=== PATIENT | male | born 1945 | race African-American/Black ===

== ENCOUNTER 2021-10-27 19:04 | Inpatient (IN) | payer OTHER ==
[2021-10-27] MEDS ORDERED: ACETAMINOPHEN 500 MG TAB ONE (20:15)
[2021-10-27] MEDS ORDERED: NA CHLORIDE 0.9% 1,000 ML ONE ×2 (20:15→21:45)
[2021-10-27] MEDS ORDERED: CEFTRIAXONE 1000 MG/VIAL ONE (20:18)
[2021-10-27 20:19] LABS: Absolute Lymphocytes (CBC) 0.5 K/uL (0.7-4.9); Hematocrit 32.3 % (39.6-49.0); Lymphocytes % 7.6 % (15.3-44.8); MPV 7.4 fL (7.6-11.3); RBC Red Blood Cell Count 4.51 M/uL (4.33-5.43)
[2021-10-27 20:22] LABS: Protime INR 1.25
--- NOTE | 2021-10-27 20:22 | RAD REPORT ---
EXAM DESCRIPTION: RAD - Chest Single View - 10/27/2021 8:07 pm CLINICAL HISTORY: FEVER, hematuria COMPARISON: None available TECHNIQUE: AP portable chest image was obtained 10/27/2021 8:07 pm . FINDINGS: Lungs are clear. Heart and vasculature are normal. No measurable pleural effusion and no p neumothorax. No acute bony abnormality seen. No acute aortic findings suspected. IMPRESSION: No acute cardiopulmonary process.
[2021-10-27 20:45] LABS: Albumin 3.7 g/dL (3.4-5.0); Bilirubin Direct 0.2 mg/dL (0-0.2); Bilirubin Total 0.5 mg/dL (0.2-1.0); Magnesium 1.1 mg/dL (1.8-2.4); Protein, Total 7.8 g/dL (6.4-8.2); Troponin High Sensitivity 44.3 pg/mL (<58.9)
[2021-10-27 20:54] LABS: SARS-COV-2 RT PCR NEGATIVE (NEGATIVE)
[2021-10-27 20:55] LABS: Urine Blood 3+ (Negative); Urine Glucose Negative (Negative); Urine Protein 2+ (Negative); Urine Specific Gravity 1.025 (1.005-1.030); Urine pH 5.5 (5.0-7.0)
[2021-10-27] MEDS ORDERED: Magnesium Sulfate 2gm IVPB 2 G/50 ML BAG IV ONE (21:06)
[2021-10-27 21:09] LABS: Urine Bacteria >50 /HPF (NONE SEEN); Urine RBC >50 /HPF (NONE SEEN); Urine Urothelial Cells <5 /HPF (NONE SEEN)
--- NOTE | 2021-10-27 21:32 | RAD REPORT ---
EXAM DESCRIPTION: CT - Stone Protocol - 10/27/2021 9:22 pm CLINICAL HISTORY: hematuria COMPARISON: No comparisons TECHNIQUE: Axial 3 mm thick images were obtained without oral or IV contrast. The [id number] span s the entirety of the system including uppermost abdomen and lung bases. All CT scans are performed using dose optimization technique as appropriate and may include automated exposure control or mA/KV adjustment according to patient size. FINDINGS: No hydronephrosis is present and no obstructing ureteral calculi. A 4 mm nonobstructing ca lculus present lateral mid left renal calyx. Trace amount nonspecific perinephric stranding seen. No suspicious renal masses. Isodense masses and pyelonephritis are not excluded on a stone protocol CT s can. No significant adrenal finding. Urinary bladder is tightly contracted. This accentuates wall thi ckness. Possible bladder mass or abnormal bladder wall thickening cannot be assessed in this study. P rostate gland is enlarged. There is stranding in the fat adjacent to the prostate gland. Imaged portions of the liver, spleen and pancreas show no suspicious findings on non-contrast imaging . No gallbladder or biliary tree abnormality identified. No suspicious bowel findings. Appendix is normal. No acute GI process seen. No hernia, mass or bulky lymphadenopathy noted. No free air, free fluid or inflammatory stranding. No significant bony abnormality. IMPRESSION: No hydronephrosis, obstructing calculus or acute renal or ureteral process seen. Prostate gland is not grossly enlarged but does show some stranding or edema in the periprostatic fat . Correlation is needed with any clinical or exam findings of prostatitis. Urinary bladder is tightly contracted which precludes accurate assessment of cystitis, bladder wall t hickening or bladder mass. Isodense masses and pyelonephritis are not excluded on stone protocol technique.
[2021-10-27] MEDS ORDERED: IBUPROFEN 400 MG TAB ONE (21:41)
[2021-10-27] MEDS ORDERED: IBUPROFEN 200 MG TAB PO ONE (21:41)
[2021-10-27 22:00] LABS: Blood Morphology Comment NOT SEEN (NOT SEEN); Platelet Estimate ADEQ; White Blood Cell Scan OK (OK)
--- NOTE | 2021-10-27 22:15 | EDPHYS ---
Physician Documentation [facility] Name: Glenn Galvez Age: 76 yrs Sex: Male : 1945 Arrival Date: 10/27/2021 Time: 19:06 Bed 18 Private MD: ED Physician Qasim Grant HPI: 10/27 19:55 This 76 yrs old Black Male presents to ER via Wheelchair with complaints of Urinary cp Problem. 19:55 The patient presents with urinary symptoms, hematuria. cp 19:55 Onset: The symptoms/episode began/occurred yesterday. Associated signs and symptoms: cp Pertinent positives: fever, hematuria, Pertinent negatives: abdominal pain, constipation, diarrhea, dysuria, nausea, vomiting. Severity of symptoms: in the emergency department the symptoms are unchanged, despite home interventions. Historical: - Allergies: 19:19 No Known Allergies; lg3 - Home Meds: 19:19 losartan 50 mg oral tab 1 tab once daily [Active]; metformin 1,000 mg Oral tr24 1 tab lg3 once daily [Active]; aspirin 81 mg Oral TbEC 1 tab once daily [Active]; simvastatin 40 mg Oral tab 1 tab once daily [Active]; hydrochlorothiazide 25 mg Oral tab 1 tab once daily [Active]; glipizide 5 mg Oral tab 1 tab once daily [Active]; - PMHx: 19:23 Diabetes mellitus; hypertension; high cholesterol; lg3 - PSHx: 19:23 None; lg3 - Immunization history:: Adult Immunizations up to date, Client reports receiving the 2nd dose of the Covid vaccine, moderna X3. - Social history:: Smoking status: Patient denies any tobacco usage or history of. Patient uses alcohol, occasionally. ROS: 19:57 Constitutional: Positive for fever, Negative for body aches, chills, poor PO intake. cp 19:57 Eyes: Negative for injury, pain, redness, and discharge. cp 19:57 ENT: Negative for drainage from ear(s), ear pain, sore throat, difficulty swallowing, difficulty handling secretions. 19:57 Cardiovascular: Negative for chest pain, edema, palpitations. 19:57 Respiratory: Negative for cough, shortness of breath, wheezing. 19:57 Abdomen/GI: Negative for abdominal pain, vomiting, diarrhea, constipation. 19:57 Back: Negative for pain at rest, pain with movement. 19:57 : Positive for hematuria, Negative for burning with urination, difficulty urinating, testicular pain 19:57 Skin: Negative for rash. 19:57 Neuro: Negative for altered mental status, dizziness, headache, weakness. 19:57 All other systems are negative. Exam: 19:57 ECG was reviewed by the Attending Physician. cp 20:00 Constitutional: The patient appears in no acute distress, alert, awake, cp non-diaphoretic, non-toxic, well developed, well nourished, febrile. 20:00 Head/Face: Normocephalic, atraumatic. cp 20:00 Eyes: Periorbital structures: appear normal, Conjunctiva: normal, no exudate, no injection, Sclera: no appreciated abnormality, Lids and lashes: appear normal, bilaterally. 20:00 ENT: External ear(s): are unremarkable, Nose: is normal, Mouth: Lips: moist, Oral mucosa: pink and intact, moist, Posterior pharynx: is normal, airway is patent, no erythema, no exudate. 20:00 Neck: ROM/movement: is normal, is supple, without pain, no range of motions limitations, no meningismus. 20:00 Chest/axilla: Inspection: normal, Palpation: is normal, no crepitus, no tenderness. 20:00 Cardiovascular: Rate: tachycardic, Rhythm: regular, Edema: is not appreciated, JVD: is not appreciated. 20:00 Respiratory: the patient does not display signs of respiratory distress, Respirations: normal, no use of accessory muscles, no retractions, labored breathing, is not present, Breath sounds: are clear throughout, no decreased breath sounds, no stridor, no wheezing. 20:00 Abdomen/GI: Inspection: abdomen appears normal, Bowel sounds: active, all quadrants, Palpation: abdomen is soft and non-tender, in all quadrants, rebound tenderness, is not appreciated, involuntary guarding, is not appreciated. 20:00 Back: pain, is absent, ROM is normal, CVA tenderness, is absent. 20:00 Skin: no rash present. 20:00 Neuro: Orientation: to person, place \\T\\ time. Mentation: is normal, Motor: moves all fours, strength is normal, Sensation: is normal. Vital Signs: 19:16 BP 135 / 70; Pulse 138; Resp 17; Temp 103(O); Pulse Ox 98% on R/A; Weight 77.11 kg (R); lg3 Height 5 ft. 3 in. (160.02 cm) (R); Pain 0/10; 21:25 Temp 103(O); kd3 23:02 Temp 99(O); kd3 10/28 00:19 BP 131 / 70; Pulse 88; Resp 16; Pulse Ox 100% on R/A; kd3 01:47 BP 128 / 71; Pulse 88; Resp 18; Pulse Ox 99% on R/A; kd3 10/27 19:16 Body Mass Index 30.11 (77.11 kg, 160.02 cm) lg3 MDM: 10/27 19:40 Patient medically screened. cp 20:00 Differential diagnosis: UTI, urinary retention, prostatitis, sepsis. cp 22:00 Data reviewed: vital signs, nurses notes, lab test result(s), EKG, radiologic studies, cp CT scan, plain films. 22:00 Counseling: I had a detailed discussion with the patient and/or guardian regarding: the cp historical points, exam findings, and any diagnostic results supporting the discharge/admit diagnosis, lab results, radiology results, the need for further work-up and treatment in the hospital. 22:05 Physician consultation: Cris PAULA was called at 22:05, was contacted at 22:05, regarding admission, to the telemetry unit. patient's condition. 22:05 Response to treatment: the patient's symptoms have markedly improved after treatment. cp 10/27 19:47 Order name: Basic Metabolic Panel; Complete Time: 20:49 cp 10/27 20:49 Interpretation: Normal except: NA 134; GLUC 205; BUN 25; CRE 1.67; GFR 49. cp 10/27 19:47 Order name: CBC with Diff; Complete Time: 22:50 cp 10/27 20:49 Interpretation: Normal except: HGB 10.4; HCT 32.3; MCV 71.7; MCH 23.0; MPV 7.4; KENNA% cp 88.1; LYM% 7.6; LYMA 0.5. 10/27 19:47 Order name: LFT's; Complete Time: 20:49 cp 10/27 21:46 Interpretation: Normal except: GLOB 4.1; A/G 0.9. cp / 19:47 Order name: Magnesium; Complete Time: 20:49 cp 10/27 21:47 Interpretation: MG 1.1; Reviewed. cp 10/27 19:47 Order name: NT PRO-BNP; Complete Time: 20:49 cp 10/27 19:47 Order name: PT-INR; Complete Time: 20:49 cp 10/27 19:47 Order name: Troponin HS; Complete Time: 20:49 cp 10/27 19:47 Order name: Lactate; Complete Time: 20:49 cp 10/27 19:47 Order name: Blood Culture Adult (2) cp 10/27 19:47 Order name: Procalcitonin; Complete Time: 21:36 cp 10/27 19:47 Order name: Urine Microscopic Only; Complete Time: 21:36 cp 10/27 21:48 Interpretation: Normal except: UWBC 10-20; URBC >50; UBACT >50. cp 10/27 19:47 Order name: COVID-19/FLU A+B (Document "Date of Onset" if Symptomatic); Complete Time: cp 20:56 10/27 20:55 Order name: Urine Dipstick-Ancillary; Complete Time: 20:56 EDMS 10/27 20:56 Interpretation: Normal except: UKET Trace; UBLD 3+; UPROT 2+; UESTR 1+. cp / 21:13 Order name: Urine Culture EDOH 10/27 19:47 Order name: XRAY Chest (1 view); Complete Time: 20:49 cp 10/27 19:47 Order name: EKG; Complete Time: 19:48 cp 10/27 19:47 Order name: Cardiac monitoring; Complete Time: 20:07 cp 10/27 19:47 Order name: EKG - Nurse/Tech; Complete Time: 20:07 cp 10/27 19:47 Order name: IV Saline Lock; Complete Time: 19:47 cp 10/27 19:47 Order name: Labs collected and sent; Complete Time: 20:07 cp 10/27 20:50 Order name: CT Stone Protocol; Complete Time: 21:36 cp 10/27 22:00 Order name: CBC Smear Scan; Complete Time: 22:50 EDMS 10/27 23:07 Order name: Lactate; Complete Time: 01:18 cp 10/28 01:38 Order name: Procalcitonin EDMS 10/27 19:47 Order name: O2 Per Protocol; Complete Time: 20:07 cp 10/27 19:47 Order name: O2 Sat Monitoring; Complete Time: 20:07 cp 10/27 19:47 Order name: Urine Dipstick-Ancillary (obtain specimen); Complete Time: 20:55 cp EC:57 Rate is 117 beats/min. Rhythm is regular. MN interval is normal. QRS interval is cp normal. QT interval is normal. T waves are Inverted in lead aVR. Interpreted by me. Reviewed by me. Administered Medications: 20:12 Drug: Tylenol 1000 mg Route: PO; 10/28 01:48 Follow up: Response: No adverse reaction [facility] 10/27 20:12 Drug: NS 0.9% 1000 ml Route: IV; Rate: 500 ml/hr; Site: right antecubital; 21:25 Follow up: Response: No adverse reaction; IV Status: Completed infusion 3 10/28 01:48 Follow up: Response: No adverse reaction; IV Status: Completed infusion 3 10/27 20:23 Drug: Rocephin - (cefTRIAXone) 1 grams Route: IVPB; Infused Over: 30 mins; Site: left [facility] antecubital; 10/28 01:48 Follow up: Response: No adverse reaction; IV Status: Completed infusion 3 10/27 21:25 Drug: Magnesium Sulfate 2 grams Route: IVPB; Infused Over: 2 hrs; Site: left [facility] antecubital; 10/28 01:48 Follow up: Response: No adverse reaction; IV Status: Completed infusion 3 10/27 21:40 Drug: Ibuprofen 800 mg Route: PO; 10/28 01:48 Follow up: Response: No adverse reaction 10/27 21:40 Drug: NS 0.9% (30 ml/kg) 30 ml/kg Route: IV; Rate: bolus; Site: right antecubital; 10/28 01:47 Follow up: Rate change 1000 ml; IV Status: Completed infusion Disposition: 06:15 Co-signature as Attending Physician, Qasim Grant MD I agree with the assessment and kdr plan of care. Disposition Summary: 10/27/21 22:15 Hospitalization Ordered Hospitalization Status: Inpatient Admission cp Provider: Brown, Cris cp Location: Telemetry/MedSurg (Inpatient) cp Condition: Stable cp Problem: new cp Symptoms: have improved cp Bed/Room Type: Standard cp Room Assignment: 216(10/27/21 23:19) Diagnosis - UTI/ Urinary tract infection, site not specified cp Forms: - Medication Reconciliation Form cp - SBAR form cp Signatures: Dispatcher [employer] EDMS Mariaa Carlos RN RN Qasim Grant MD MD kdr Page, Corey, PA PA cp Debra Mandel RN RN lg3 Johanna Lawton RN RN kd3 Cris Nayak PA PA sb3 Corrections: (The following items were deleted from the chart) 10/27 22:15 22:15 Sepsis, unspecified organism cp cp 23:19 22:15 cp mw
--- NOTE | 2021-10-27 22:15 | ER ---
Nurse's Notes [facility] Name: Glenn Galvez Age: 76 yrs Sex: Male : 1945 Arrival Date: 10/27/2021 Time: 19:06 Bed 18 Private MD: Diagnosis: UTI/ Urinary tract infection, site not specified Presentation: 10/27 19:16 Chief complaint: Patient states: I started urinating blood yesterday. it stopped lg3 overnight but started again today. denies pain/urgency and frequency. Coronavirus screen: Client denies travel out of the [place] in the last 14 days. At this time, the client does not indicate any symptoms associated with coronavirus-19. Ebola Screen: No symptoms or risks identified at this time. Initial Sepsis Screen: Does the patient meet any 2 criteria? Temp <36.0*C (96.8*F)) or > 38.3*C (100.9*F). HR > 90 bpm. Yes Does the patient have a suspected source of infection? No. Patient's initial sepsis screen is negative. Risk Assessment: Do you want to hurt yourself or someone else? Patient reports no desire to harm self or others. Onset of symptoms was October 26, 2021. 19:16 Method Of Arrival: Wheelchair lg3 19:16 Acuity: MARIA G 3 lg3 Triage Assessment: 19:23 General: Appears in no apparent distress. comfortable, Behavior is calm, cooperative. lg3 Pain: Denies pain. EENT: No deficits noted. No signs and/or symptoms were reported regarding the EENT system. Neuro: No deficits noted. Level of Consciousness is awake, alert, obeys commands, Oriented to person, place, time, situation. Cardiovascular: No deficits noted. Denies chest pain, shortness of breath, Capillary refill < 3 seconds Clubbing of nail beds is absent Patient's skin is warm and dry. Respiratory: No deficits noted. Airway is patent Trachea midline Respiratory effort is even, unlabored, Respiratory pattern is regular, symmetrical. GI: No deficits noted. No signs and/or symptoms were reported involving the gastrointestinal system. : Parent/caregiver report the patient having bloody urine. Derm: No deficits noted. No signs and/or symptoms reported regarding the dermatologic system. Skin is intact, is healthy with good turgor, Skin is diaphoretic. Musculoskeletal: No deficits noted. No signs and/or symptoms reported regarding the musculoskeletal system. Circulation, motion, and sensation intact. Range of motion: intact in all extremities. Historical: - Allergies: 19:19 No Known Allergies; lg3 - Home Meds: 19:19 losartan 50 mg oral tab 1 tab once daily [Active]; metformin 1,000 mg Oral tr24 1 tab lg3 once daily [Active]; aspirin 81 mg Oral TbEC 1 tab once daily [Active]; simvastatin 40 mg Oral tab 1 tab once daily [Active]; hydrochlorothiazide 25 mg Oral tab 1 tab once daily [Active]; glipizide 5 mg Oral tab 1 tab once daily [Active]; - PMHx: 19:23 Diabetes mellitus; hypertension; high cholesterol; lg3 - PSHx: 19:23 None; lg3 - Immunization history:: Adult Immunizations up to date, Client reports receiving the 2nd dose of the Covid vaccine, moderna X3. - Social history:: Smoking status: Patient denies any tobacco usage or history of. Patient uses alcohol, occasionally. Screenin:30 Abuse screen: Denies threats or abuse. Denies injuries from another. Nutritional kd3 screening: No deficits noted. Tuberculosis screening: No symptoms or risk factors identified. Fall Risk IV access (20 points). Assessment: 21:29 General: Appears in no apparent distress. Behavior is calm, cooperative, appropriate kd3 for age. Pain: Denies pain. Neuro: Level of Consciousness is awake, alert, obeys commands, Oriented to person, place, time, situation. Cardiovascular: Patient's skin is warm and dry. Respiratory: Airway is patent Respiratory effort is even, unlabored. GI: No signs and/or symptoms were reported involving the gastrointestinal system. : Urine is blood tinged. Vital Signs: 19:16 BP 135 / 70; Pulse 138; Resp 17; Temp 103(O); Pulse Ox 98% on R/A; Weight 77.11 kg (R); lg3 Height 5 ft. 3 in. (160.02 cm) (R); Pain 0/10; 21:25 Temp 103(O); kd3 23:02 Temp 99(O); kd3 0425 00:19 BP 131 / 70; Pulse 88; Resp 16; Pulse Ox 100% on R/A; kd3 01:47 BP 128 / 71; Pulse 88; Resp 18; Pulse Ox 99% on R/A; kd3 10/27 19:16 Body Mass Index 30.11 (77.11 kg, 160.02 cm) lg3 ED Course: 10/27 19:06 Patient arrived in ED. mr 19:19 Triage completed. lg3 19:23 Arm band placed on left wrist. lg3 19:28 Jareth Clement PA is PHCP. cp 19:36 Jareth Clement PA is PHCP. cp 19:36 Qasim Grant MD is Attending Physician. cp 19:46 Maddison Albarado, SWAPNIL is Primary Nurse. ld1 19:47 Johanna Lawton, SWAPNIL is Primary Nurse. kd3 20:06 COVID-19/FLU A+B (Document "Date of Onset" if Symptomatic) Sent. kd3 20:09 XRAY Chest (1 view) In Process Unspecified. EDMS 21:24 CT Stone Protocol In Process Unspecified. EDMS 21:30 Patient has correct armband on for positive identification. Bed in low position. Call kd3 light in reach. Side rails up X2. 21:30 Inserted saline lock: 20 gauge in right antecubital area, using aseptic technique. kd3 21:31 Inserted saline lock: 20 gauge in left antecubital area, using aseptic technique. kd3 22:14 Cris Nayak PA is Hospitalizing Provider. cp 10/28 01:46 No provider procedures requiring assistance completed. Patient admitted, IV remains in kd3 place. Administered Medications: 10/27 20:12 Drug: Tylenol 1000 mg Route: PO; kd3 10/28 01:48 Follow up: Response: No adverse reaction kd3 10/27 20:12 Drug: NS 0.9% 1000 ml Route: IV; Rate: 500 ml/hr; Site: right antecubital; kd3 21:25 Follow up: Response: No adverse reaction; IV Status: Completed infusion 3 10/28 01:48 Follow up: Response: No adverse reaction; IV Status: Completed infusion kd3 10/27 20:23 Drug: Rocephin - (cefTRIAXone) 1 grams Route: IVPB; Infused Over: 30 mins; Site: left 3 antecubital; 10/28 01:48 Follow up: Response: No adverse reaction; IV Status: Completed infusion kd3 10/27 21:25 Drug: Magnesium Sulfate 2 grams Route: IVPB; Infused Over: 2 hrs; Site: left 3 antecubital; 10/28 01:48 Follow up: Response: No adverse reaction; IV Status: Completed infusion kd3 10/27 21:40 Drug: Ibuprofen 800 mg Route: PO; kd3 10/28 01:48 Follow up: Response: No adverse reaction kd3 10/27 21:40 Drug: NS 0.9% (30 ml/kg) 30 ml/kg Route: IV; Rate: bolus; Site: right antecubital; kd3 10/28 01:47 Follow up: Rate change 1000 ml; IV Status: Completed infusion kd3 Outcome: 10/27 22:15 Decision to Hospitalize by Provider. ashley 10/28 01:46 Admitted to Med/surg accompanied by nurse, room 216, Report called to [place] kd3 Condition: stable Discharge instructions given to patient, family, Instructed on the need for admit, Demonstrated understanding of instructions. 01:49 Patient left the ED. kd3 Signatures: Dispatcher [employer] EDNC Bridget Cordon Corey, PA PA cp Gibson, Lacie RN RN lg3 Maddison Albarado RN RN ld1 Johanna Lawton RN RN kd3
[2021-10-28] MEDS ORDERED: ACETAMINOPHEN 500 MG TAB PO PRN (00:28)
[2021-10-28] MEDS ORDERED: ONDANSETRON 4 MG/2 ML VIAL IV PRN (00:28)
--- NOTE | 2021-10-28 01:18 | P.HP ---
Certification for Inpatient Patient admitted to: Inpatient With expected LOS: <2 Midnights Patient will require the following post-hospital care: None Practitioner: I am a practitioner with admitting privileges, knowledge of patient current condition, hospital course, and medical plan of care. Services: Services provided to patient in accordance with Admission requirements found in Title 42 Section 412.3 of the Code of Federal Regulations Patient History Date of Service: 10/28/21 Reason for admission: Prostatitis/UTI History of Present Illness: Patient is a 76-year-old -Polish male with past medical history of type 2 diabetes mellitus lbk-hqzqjge-osxiwbcms, hypertension, hyperlipidemia who presented to the ED with complaints of hematuria and fever. He was found to have a temperature of 103F and was tachycardic at 138 flagging sepsis. His urine was positive for UTI, Pro-Jeremy elevated at 2.15, magnesium 1.1, creatinine 1.67. Abdominal CT showed no evidence of nephrolithiasis or hydronephrosis. Prostate gland exhibiting stranding or edema in the periprostatic fat along with cystitis. He was given sepsis fluids, ibuprofen, magnesium, and Rocephin. Upon my assessment, patient has no complaints. He is resting comfortably. His temperature has come down to 99 F. Will admit patient for further evaluation and treatment. Allergies No Known Allergies Allergy (Unverified 10/28/21 00:20) Home medications list reviewed: Yes - Past Medical/Surgical History Diabetic: Yes -: Type 2 Zgmdreew-zox-mgqinyd-dependent -: HTN -: HLD Past Surgical History: Patient denies surgical history Psychosocial/ Personal History: Patient lives at home with his . - Family History Mother -: Cancer Father -: Cancer - Social History Smoking Status: Never smoker Alcohol use: Yes CD- Drugs: No Caffeine use: Yes Place of Residence: Home Review of Systems 10-point ROS is otherwise unremarkable General: Fever Genitourinary: Hematuria Physical Examination - Physical Exam General: Alert, In no apparent distress, Oriented x3 HEENT: Atraumatic, PERRLA, Mucous membr. moist/pink, EOMI, Sclerae nonicteric Neck: Supple, 2+ carotid pulse no bruit, No LAD, Without JVD or thyroid abnormality Respiratory: Clear to auscultation bilaterally, Normal air movement Cardiovascular: Regular rate/rhythm, Normal S1 S2 Gastrointestinal: Normal bowel sounds, No tenderness Musculoskeletal: No tenderness Integumentary: No rashes Neurological: Normal speech, Normal strength at 5/5 x4 extr, Normal tone, Normal affect - Studies Laboratory Data (last 24 hrs) 10/27/21 19:35: PT 13.8 H, INR 1.25 10/27/21 19:35: WBC 6.7, Hgb 10.4 L, Hct 32.3 L, Plt Count 194 10/27/21 19:35: Sodium 134 L, Potassium 4.0, BUN 25 H, Creatinine 1.67 H, Glucose 205 H, Magnesium 1.1 L*, Total Bilirubin 0.5, AST 17, ALT 30, Alkaline Phosphatase 71 Assessment and Plan - Problems (Diagnosis) (1) Sepsis Current Visit: Yes Status: Acute Qualifiers: Sepsis type: sepsis due to unspecified organism Sepsis acute organ dysfunction status: without acute organ dysfunction Qualified Code(s): A41.9 - Sepsis, unspecified organism (2) Acute bacterial prostatitis Current Visit: Yes Status: Acute (3) Urinary tract infection with hematuria Current Visit: Yes Status: Acute Qualifiers: Urinary tract infection type: acute cystitis Qualified Code(s): N30.01 - Acute cystitis with hematuria (4) Hypomagnesemia Current Visit: Yes Status: Acute (5) Type 2 diabetes mellitus Current Visit: Yes Status: Chronic Qualifiers: Diabetes mellitus penitentiary insulin use: without long distance billing operator use Diabetes mellitus complication status: without complication Qualified Code(s): E11.9 - Type 2 diabetes mellitus without complications (6) HTN (hypertension) Current Visit: Yes Status: Chronic Qualifiers: Hypertension type: primary hypertension Qualified Code(s): I10 - Essential (primary) hypertension (7) HLD (hyperlipidemia) Current Visit: No Status: Chronic Qualifiers: Hyperlipidemia type: mixed hyperlipidemia Qualified Code(s): E78.2 - Mixed hyperlipidemia (8) Family hx of prostate cancer Current Visit: Yes Status: Chronic (9) REYNA (acute kidney injury) Current Visit: Yes Status: Acute - Plan -Initially flagged sepsis with temp of 103F degrees and HR 138. Temp has come down to 99F heart rate < 100 however Pro-Jeremy elevated at 2.15 (will trend). WBC WNL. patient received sepsis fluids and Rocephin in ED. Blood and urine culture sent. -Urine was positive for UTI and CT showed prostatitis and cystitis. start patient on ciprofloxacin. -Magnesium was very low at 1.1. Received 2 g in the ED. continue patient on magnesium replacement protocol. -Patient states that he has a family history of prostate cancer. He states that his PSA was 0 upon last check. Have ordered PSA for the morning -REYNA with creatinine elevated at 1.67 likely secondary to infection/sepsis. Will trend -Tylenol as needed fever/pain -Reconcile and continue home medications -Lovenox for DVT prophylaxis Patient's , Dee Dee, can be reached at [phone] Discharge Plan: Home Plan to discharge in: 48 Hours - Advance Directives Does patient have a Living Will: No Does patient have a Durable POA for Healthcare: No - Code Status/Comfort Care Code Status Assessed: Yes (Full) Critical Care: No Time Spent Managing Pts Care (In Minutes): 50
[2021-10-28 02:14] VITALS: BMI 29.2
[2021-10-28] MEDS: NA CHLORIDE 0.9% 1,000 ML IV SCH ×3 (02:37→20:57)
[2021-10-28 04:29] LABS: Absolute Lymphocytes (CBC) 0.9 K/uL (0.7-4.9); Hematocrit 28.3 % (39.6-49.0); Lymphocytes % 10.2 % (15.3-44.8); MPV 7.7 fL (7.6-11.3); RBC Red Blood Cell Count 3.93 M/uL (4.33-5.43)
[2021-10-28 04:58] LABS: Magnesium 2.1 mg/dL (1.8-2.4); Phosphorus 3.7 mg/dL (2.5-4.9)
[2021-10-28] MEDS: INSULIN -REGULAR HUMAN 50 UNIT/0.5 ML ML SQ SCH ×4 (07:30→20:43)
[2021-10-28] MEDS: ENOXAPARIN 40 MG/0.4 ML SQ SCH (09:00)
[2021-10-28] MEDS: CIPROFLOXACIN 400mg IV 400 MG/200 ML BAG IV SCH ×2 (10:02→20:53)
--- NOTE | 2021-10-28 15:58 | P.PN ---
Subjective Date of Service: 10/28/21 Chief Complaint: Prostatitis/UTI Subjective: No new changes, Tolerating diet Physical Examination - Vital Signs Temperature: 97.8 F Blood Pressure: 124/68 Pulse: 68 Respirations: 18 Pulse Ox (%): 98 - Studies Laboratory Data (last 24 hrs) 10/27/21 19:35: PT 13.8 H, INR 1.25 10/27/21 19:35: WBC 6.7, Hgb 10.4 L, Hct 32.3 L, Plt Count 194 10/27/21 19:35: Sodium 134 L, Potassium 4.0, BUN 25 H, Creatinine 1.67 H, Glucose 205 H, Magnesium 1.1 L*, Total Bilirubin 0.5, AST 17, ALT 30, Alkaline Phosphatase 71 Microbiology Data (last 24 hrs): 10/27/21 20:00 Blood - Blood Blood Culture Gram Stain - Final Assessment And Plan Physician Review: Patient Assessed, Agree with Above Assessment and Plan Physician Review Additional Text: - Physical Exam General: Alert, In no apparent distress, Oriented x3 HEENT: Atraumatic, PERRLA, Mucous membr. moist/pink, EOMI, Sclerae nonicteric Neck: Supple, 2+ carotid pulse no bruit, No LAD, Without JVD or thyroid abnormality Respiratory: Clear to auscultation bilaterally, Normal air movement Cardiovascular: Regular rate/rhythm, Normal S1 S2 Gastrointestinal: Normal bowel sounds, No tenderness Musculoskeletal: No tenderness Integumentary: No rashes Neurological: Normal speech, Normal strength at 5/5 x4 extr, Normal tone, Normal affect - Studies Assessment and Plan Acute bacterial sepsis Gram-negative martina UTI/cystitis/prostatitis BPH History of diabetes mellitus History of hypertension - Problems (Diagnosis) (1) Sepsis Current Visit: Yes Status: Acute Qualifiers: Sepsis type: sepsis due to unspecified organism Sepsis acute organ dysfunction status: without acute organ dysfunction Qualified Code(s): A41.9 - Sepsis, unspecified organism (2) Acute bacterial prostatitis Current Visit: Yes Status: Acute (3) Urinary tract infection with hematuria Current Visit: Yes Status: Acute Qualifiers: Urinary tract infection type: acute cystitis Qualified Code(s): N30.01 - Acute cystitis with hematuria (4) Hypomagnesemia Current Visit: Yes Status: Acute (5) Type 2 diabetes mellitus Current Visit: Yes Status: Chronic Qualifiers: Diabetes mellitus long-term insulin use: without termite exterminator helper use Diabetes mellitus complication status: without complication Qualified Code(s): E11.9 - Type 2 diabetes mellitus without complications (6) HTN (hypertension) Current Visit: Yes Status: Chronic Qualifiers: Hypertension type: primary hypertension Qualified Code(s): I10 - Essential (primary) hypertension (7) HLD (hyperlipidemia) Current Visit: No Status: Chronic Qualifiers: Hyperlipidemia type: mixed hyperlipidemia Qualified Code(s): E78.2 - Mixed hyperlipidemia (8) Family hx of prostate cancer Current Visit: Yes Status: Chronic (9) REYNA (acute kidney injury) Current Visit: Yes Status: Acute - Plan -Continue empirical antibiotics for cystitis and prostatitis Enlarged prostate noted on imaging, will need follow-up as outpatient for possible prostatectomy Continue antibiotics for now Of urine culture growing gram-negative rods, follow full culture Elevated PSA not reliable in setting of acute prostatitis at this time Continue empirical Rocephin Follow repeat magnesium level Creatinine improving to 1.4 -Reconcile and continue home medications -Lovenox for DVT prophylaxis 10/28/21 15:59
[2021-10-28] MEDS ORDERED: METFORMIN ER 500 MG TAB PO SCH (17:00)
[2021-10-28] MEDS: ATORVASTATIN 20 MG TAB PO SCH (20:57)
[2021-10-28] MEDS ORDERED: HOME MED 1 EA UNK (Simvastatin [Simvastatin] 40 MG Tablet) PO SCH (21:00)
[2021-10-29 05:40] LABS: Absolute Lymphocytes (CBC) 1.1 K/uL (0.7-4.9); Hematocrit 25.5 % (39.6-49.0); MPV 7.7 fL (7.6-11.3); RBC Red Blood Cell Count 3.53 M/uL (4.33-5.43)
[2021-10-29 05:52] LABS: Magnesium 1.8 mg/dL (1.8-2.4)
[2021-10-29] MEDS: NA CHLORIDE 0.9% 1,000 ML IV SCH (06:18)
[2021-10-29] MEDS: INSULIN -REGULAR HUMAN 50 UNIT/0.5 ML ML SQ SCH ×4 (07:30→21:00)
[2021-10-29] MEDS ORDERED: MAGNESIUM SULFATE 1 gm IVPB 1 GM/100 ML BAG IV ONE (09:00)
[2021-10-29] MEDS ORDERED: HOME MED 1 EA UNK (Metformin Hcl [Metformin Er Gastric] 1,000 MG Tabergr24h) PO SCH (09:00)
[2021-10-29] MEDS: ENOXAPARIN 40 MG/0.4 ML SQ SCH (09:00)
--- NOTE | 2021-10-29 09:58 | P.PN ---
Subjective Date of Service: 10/29/21 Chief Complaint: Prostatitis/UTI Subjective: No new changes, Tolerating diet Physical Examination - Vital Signs Temperature: 98.7 F Blood Pressure: 156/72 Pulse: 79 Respirations: 18 Pulse Ox (%): 100 - Studies Microbiology Data (last 24 hrs): 10/27/21 20:00 Blood - Blood Blood Culture Gram Stain - Final Assessment And Plan Physician Review: Patient Assessed, Agree with Above Assessment and Plan Physician Review Additional Text: - Physical Exam General: Alert, In no apparent distress, Oriented x3 HEENT: Atraumatic, PERRLA, Mucous membr. moist/pink, EOMI, Sclerae nonicteric Neck: Supple, 2+ carotid pulse no bruit, No LAD, Without JVD or thyroid abnormality Respiratory: Clear to auscultation bilaterally, Normal air movement Cardiovascular: Regular rate/rhythm, Normal S1 S2 Gastrointestinal: Normal bowel sounds, No tenderness Musculoskeletal: No tenderness Integumentary: No rashes Neurological: Normal speech, Normal strength at 5/5 x4 extr, Normal tone, Normal affect - Studies Assessment and Plan Acute bacterial sepsis Gram-negative martina UTI/cystitis/prostatitis BPH History of diabetes mellitus History of hypertension - Problems (Diagnosis) (1) Sepsis Current Visit: Yes Status: Acute Qualifiers: Sepsis type: sepsis due to unspecified organism Sepsis acute organ dysfunction status: without acute organ dysfunction Qualified Code(s): A41.9 - Sepsis, unspecified organism (2) Acute bacterial prostatitis Current Visit: Yes Status: Acute (3) Urinary tract infection with hematuria Current Visit: Yes Status: Acute Qualifiers: Urinary tract infection type: acute cystitis Qualified Code(s): N30.01 - Acute cystitis with hematuria (4) Hypomagnesemia Current Visit: Yes Status: Acute (5) Type 2 diabetes mellitus Current Visit: Yes Status: Chronic Qualifiers: Diabetes mellitus terminal manager insulin use: without nursing home use Diabetes mellitus complication status: without complication Qualified Code(s): E11.9 - Type 2 diabetes mellitus without complications (6) HTN (hypertension) Current Visit: Yes Status: Chronic Qualifiers: Hypertension type: primary hypertension Qualified Code(s): I10 - Essential (primary) hypertension (7) HLD (hyperlipidemia) Current Visit: No Status: Chronic Qualifiers: Hyperlipidemia type: mixed hyperlipidemia Qualified Code(s): E78.2 - Mixed hyperlipidemia (8) Family hx of prostate cancer Current Visit: Yes Status: Chronic (9) REYNA (acute kidney injury) Current Visit: Yes Status: Acute - Plan -Blood culture Follow repeat blood culture today Urine culture also growing gram-negative rods, follow for sensitivity Continue empirical Cipro Continue empirical antibiotics for cystitis and prostatitis Can DC IVF now since rising BP Creatinine improving to 1.1, follow and appreciate nephrology evaluation Trending H&H due to fluid, obtain iron profile Disposition possible home in a.m. after full culture growth 10/29/21 09:57
[2021-10-29] MEDS: CIPROFLOXACIN 400mg IV 400 MG/200 ML BAG IV SCH ×2 (10:01→21:24)
[2021-10-29] MEDS: ASPIRIN EC 81 MG TAB PO SCH (10:02)
[2021-10-29] MEDS: glipiZIDE 5 MG TAB PO SCH (10:02)
[2021-10-29 11:03] LABS: Ferritin 102.6 ng/mL (26-388)
[2021-10-29] MEDS: METFORMIN ER 500 MG TAB PO SCH (13:15)
[2021-10-29 18:58] LABS: Urine Appearance Clear (Clear); Urine Bilirubin Negative (Negative); Urine Blood Negative (Negative); Urine Color Yellow (Yellow); Urine Glucose Negative (Negative); Urine Protein Negative (Negative); Urine Specific Gravity >=1.030 (1.005-1.030); Urine Urobilinogen 0.2 mg/dL (0.2-1.0); Urine pH 5.5 (5.0-7.0)
[2021-10-29 19:03] LABS: Urine Microscopic Reflex NO UMIC
--- NOTE | 2021-10-29 19:54 | CON ---
Date of Consultation: 10/29/2021 Additional Consulting Physician: Dr. Mcgrath. Reason For Consultation: Elevated BUN and creatinine, hematuria. History Of Present Illness: This is a pleasant 76-year-old gentleman with significant past medical history of diabetes complicated with neuropathy, no retinopathy, hypertension, hyperlipidemia, the patient came to the hospital with hematuria, found to have elevation in BUN and creatinine. For that reason, we have been consulted. The patient denied taking any nonsteroidal, no IV contrast. Reviewing the record for the patient apparently as outpatient, the patient had been on hydrochlorothiazide and losartan. During the hospitalization, the patient was started on IV hydration. Hematuria gradually started improving. Kidney function gradually trending down. Past Medical History: 1. Diabetes complicated with neuropathy, no retinopathy. 2. Hypertension. 3. Hyperlipidemia. Past Surgical History: Negative. Allergies: NO KNOWN DRUGS ALLERGY. Home Medications: Include metformin, glipizide, hydrochlorothiazide, simvastatin, aspirin, and losartan. Current Medications: Include aspirin, atorvastatin, ciprofloxacin, glipizide, metformin. Family History: Positive for hypertension. Social History: Lives with family. Denied smoking. Denied drinking. Denied drug abuse. Review of Systems: Head and Neck: No red eye. No ear pain. GI: Has abdominal pain. : Has hematuria. Construction Trench Digger: Not applicable. Respiratory: No shortness of breath. Cardiovascular: No chest pain. Endocrine: No polydipsia. Skin: No rash. Neuro: Has no neuropathy. No weakness. Musculoskeletal: Has low back pain. Physical Examination: Vital Signs: When I saw the patient, blood pressure 124/71, pulse of 82, afebrile. Chest: Clear to auscultation. Heart: S1, S2. Regular. Abdomen: Soft, nontender. Extremities: No edema. Neurological: Alert and oriented x3. No focal. Laboratory Data: Upon admission to the hospital, H and H of 10.4/32.3. Currently, H and H of 8.1/25.5, WBC 5.7, platelet 165. Upon arrival to the hospital, sodium 134, potassium 4, bicarb 28, BUN 25, creatinine 1.6. GFR of 49, glucose 505, magnesium 1.1, albumin of 3.7, calcium 9.1. CT abdomen did not show any hydronephrosis, no calculi, and a large prostate. Urinalysis, rbc more than 50, wbc of 100. Assessment And Plan: 1. Acute kidney injury secondary to prerenal, superimposed with ARB and hydrochlorothiazide, recovered, resolved. I am going to go ahead and discontinue IV fluid. We will monitor the patient. Keep holding ARB and hydrochlorothiazide for the time being, and we will monitor the patient. 2. Hypomagnesemia status post supplement, resolved. 3. Hyponatremia, depletional, resolved. 4. Prostatitis causing hematuria. Continue current antibiotic, dose appropriate. Okay to switch the patient to oral. 5. Anemia with the presence of acute kidney injury. I am going to go ahead and send for anemia workup and serum protein electrophoresis. Iron deficiency anemia. The patient is going to need to be on supplement the patient. Time spent examining the patient, [id number] communicating with the patient and family, discussing the case with the nursing staff, reviewing the data including lab and radiology,discussing with other speciality placing order 65 minutes LIU Voice ID: [id number] Report ID: [id number] MTDD
[2021-10-29] MEDS: ATORVASTATIN 20 MG TAB PO SCH (21:23)
[2021-10-29] MEDS: FERROUS SULFATE 325 MG TAB PO SCH (21:23)
[2021-10-29 21:41] LABS: UR PROTEIN 32.1 mg/dL (<11.9); Urine Protein/Creatinine Ratio 0.2 ratio (<0.15)
[2021-10-30 05:56] LABS: BUN Blood Urea Nitrogen 15 mg/dL (7-18); Bicarbonate 26 mmol/L (21-32); Glucose Level 157 mg/dL (74-106); Magnesium 1.8 mg/dL (1.8-2.4); Potassium 4.4 mmol/L (3.5-5.1); Sodium Level 139 mmol/L (136-145)
[2021-10-30] MEDS: INSULIN -REGULAR HUMAN 50 UNIT/0.5 ML ML SQ SCH ×2 (07:30→11:30)
[2021-10-30] MEDS: CIPROFLOXACIN 400mg IV 400 MG/200 ML BAG IV SCH (09:00)
[2021-10-30] MEDS ORDERED: AMLODIPINE 10 MG TAB PO ONE (09:00)
[2021-10-30] MEDS ORDERED: MAGNESIUM SULFATE 1 gm IVPB 1 GM/100 ML BAG IV ONE (09:00)
[2021-10-30] MEDS: ENOXAPARIN 40 MG/0.4 ML SQ SCH (09:00)
--- NOTE | 2021-10-30 09:45 | P.DS ---
Admission Date: 10/27/21 Discharge Date: 10/30/21 Disposition: ROUTINE DISCHARGE Discharge Condition: FAIR Reason for Admission: Prostatitis/UTI Brief History of Present Illness: History of Present Illness: Patient is a 76-year-old -[place] male with past medical history of type 2 diabetes mellitus hrx-hqdtwha-kihbfeqom, hypertension, hyperlipidemia who presented to the ED with complaints of hematuria and fever. He was found to have a temperature of 103F and was tachycardic at 138 flagging sepsis. His urine was positive for UTI, Pro-Jeremy elevated at 2.15, magnesium 1.1, creatinine 1.67. Abdominal CT showed no evidence of nephrolithiasis or hydronephrosis. Prostate gland exhibiting stranding or edema in the periprostatic fat along with cystitis. He was given sepsis fluids, ibuprofen, magnesium, and Rocephin. Upon my assessment, patient has no complaints. He is resting comfortably. His temperature has come down to 99 F. Will admit patient for further evaluation and treatment. Allergies No Known Allergies Allergy (Unverified 10/28/21 00:20) Home medications list reviewed: Yes - Past Medical/Surgical History Diabetic: Yes -: Type 2 Kvfflvwm-oin-fxdzmis-dependent -: HTN -: HLD Hospital Course: Hospital course Patient with history of hypertension, diabetes admitted with weakness noted with E. coli UTI with prostatitis. Blood culture was positive for similar E. coli bacteria. Patient was started empirically on Cipro with improvement of his symptoms. He is voiding well, no more fever. He will be discharged home on Levaquin for a total of 2 weeks course. Of note patient hemoglobin trended down from 10-8.1. He was noted with significant iron deficiency anemia. He is started and given 1 dose of IV iron and then started on p.o. Will follow with renal team as well as urology as outpatient - Physical Exam General: Alert, In no apparent distress, Oriented x3 HEENT: Atraumatic, PERRLA, Mucous membr. moist/pink, EOMI, Sclerae nonicteric Neck: Supple, 2+ carotid pulse no bruit, No LAD, Without JVD or thyroid abnormality Respiratory: Clear to auscultation bilaterally, Normal air movement Cardiovascular: Regular rate/rhythm, Normal S1 S2 Gastrointestinal: Normal bowel sounds, No tenderness Musculoskeletal: No tenderness Integumentary: No rashes Neurological: Normal speech, Normal strength at 5/5 x4 extr, Normal tone, Normal affect Assessment and Plan E. coli bacteremia E. coli UTI/cystitis/prostatitis Anemia of chronic disease Iron deficiency History of diabetes mellitus History of hypertension - Problems (Diagnosis) (1) Sepsis Current Visit: Yes Status: Acute Qualifiers: Sepsis type: sepsis due to unspecified organism Sepsis acute organ dysfunction status: without acute organ dysfunction Qualified Code(s): A41.9 - Sepsis, unspecified organism (2) Acute bacterial prostatitis Current Visit: Yes Status: Acute (3) Urinary tract infection with hematuria Current Visit: Yes Status: Acute Qualifiers: Urinary tract infection type: acute cystitis Qualified Code(s): N30.01 - Acute cystitis with hematuria (4) Hypomagnesemia Current Visit: Yes Status: Acute (5) Type 2 diabetes mellitus Current Visit: Yes Status: Chronic Qualifiers: Diabetes mellitus long term care social worker insulin use: without long term care social worker use Diabetes mellitus complication status: without complication Qualified Code(s): E11.9 - Type 2 diabetes mellitus without complications (6) HTN (hypertension) Current Visit: Yes Status: Chronic Qualifiers: Hypertension type: primary hypertension Qualified Code(s): I10 - Essential (primary) hypertension (7) HLD (hyperlipidemia) Current Visit: No Status: Chronic Qualifiers: Hyperlipidemia type: mixed hyperlipidemia Qualified Code(s): E78.2 - Mixed hyperlipidemia (8) Family hx of prostate cancer Current Visit: Yes Status: Chronic (9) REYNA (acute kidney injury) Current Visit: Yes Status: Acute Vital Signs/Physical Exam: Temp Pulse Resp BP Pulse Ox 97.7 F 74 18 158/83 H 98 10/30/21 08:00 10/30/21 08:00 10/30/21 08:00 10/30/21 08:00 10/30/21 08:00 Laboratory Data at Discharge: WBC 5.7 K/uL (4.3-10.9) D 10/29/21 05:24 Hgb 8.1 g/dL (13.6-17.9) L 10/29/21 05:24 Hct 25.5 % (39.6-49.0) L 10/29/21 05:24 Plt Count 165 K/uL (152-406) 10/29/21 05:24 PT 13.8 SECONDS (9.5-12.5) H 10/27/21 19:35 INR 1.25 10/27/21 19:35 Sodium 139 mmol/L (136-145) 10/30/21 05:12 Potassium 4.4 mmol/L (3.5-5.1) 10/30/21 05:12 BUN 15 mg/dL (7-18) 10/30/21 05:12 Creatinine 0.97 mg/dL (0.55-1.3) 10/30/21 05:12 Glucose 157 mg/dL (74-106) H 10/30/21 05:12 Phosphorus 3.7 mg/dL (2.5-4.9) 10/28/21 04:17 Magnesium 1.8 mg/dL (1.8-2.4) 10/30/21 05:12 Total Bilirubin 0.5 mg/dL (0.2-1.0) 10/27/21 19:35 AST 17 U/L (15-37) 10/27/21 19:35 ALT 30 U/L (12-78) 10/27/21 19:35 Alkaline Phosphatase 71 U/L (45-117) 10/27/21 19:35 Home Medications: Aspirin [Aspirin EC] 81 mg PO DAILY 10/28/21 Losartan Potassium 50 mg PO DAILY 10/28/21 Metformin HCl [Metformin ER Gastric] 1,000 mg PO DAILY AT SUPPER 10/28/21 Simvastatin 40 mg PO BEDTIME 10/28/21 glipiZIDE [Glipizide] 5 mg PO ACB 10/28/21 hydroCHLOROthiazide [Hydrochlorothiazide] 25 mg PO DAILY 10/28/21 Ferrous Gluconate 324 mg PO BID #60 tablet 10/30/21 Levofloxacin [Levaquin] 500 mg PO DAILY #12 tablet 10/30/21 New Medications: Ferrous Gluconate 324 mg PO BID #60 tablet Levofloxacin [Levaquin] 500 mg PO DAILY #12 tablet Diet: ADA Activity: Ad fide Followup: Unknown,U [Primary Care Provider] - Physician Review: Patient Assessed, Agree with Above Assessment and Plan Time spent managing pt's care (in minutes): 35
[2021-10-30] MEDS ORDERED: SOD FERRIC GLUC COMPLX/SUCROSE 250 MG in NA CHLORIDE 0.9% 250 ML IV SCH (10:00)
[2021-10-30] MEDS ORDERED: LOSARTAN POTASSIUM 50 MG TABLET PO SCH (10:51)
[2021-10-30] MEDS: METFORMIN ER 500 MG TAB PO SCH (10:53)
[2021-10-30] MEDS: ASPIRIN EC 81 MG TAB PO SCH (10:54)
[2021-10-30] MEDS: glipiZIDE 5 MG TAB PO SCH (10:54)
[2021-10-30] MEDS: FERROUS SULFATE 325 MG TAB PO SCH (11:06)
[2021-10-30 12:39] VITALS: BP 169/82; TEMP 97.8
--- NOTE | 2021-10-30 15:30 | PN ---
Date of Progress Note: 10/30/2021 Subjective: The patient was admitted with acute kidney injury, hematuria secondary to prostatitis. The patient was started on treatment. The patient's kidney function has been improved. Physical Examination: Vital Signs: When I saw the patient; blood pressure 158/83, pulse of 74, afebrile. Chest: Clear to auscultation. Heart: S1, S2. Regular. Abdomen: Soft, nontender. Extremities: No edema. Laboratory Data: WBC 5.7, H and H 8.1/25.5. Sodium 139, potassium 4.4, bicarb 26, BUN 15, creatinine 0.9, calcium 7.6, magnesium 1.8. Serum protein electrophoresis is still pending. PC ratio 0.2. Current Medications: The patient on include; 1. Aspirin. 2. Cipro. 3. Lovenox. 4. IV iron. 5. Oral iron. 6. Atorvastatin. 7. Amlodipine 10 mg. 8. Tylenol. 9. Metformin. Assessment And Plan: 1. Acute kidney injury secondary to prerenal, toxic ATN secondary to urinary tract infection, recovered, resolved. We are going to continue to monitor the patient. 2. Hypertension. Given the history of diabetes, I am going to resume the losartan. We will add amlodipine and we will monitor. 3. Hypomagnesemia. We will supplement. 4. Hyponatremia secondary to depletion, status post IV hydration, resolved. 5. Iron deficiency anemia. We will start the patient on IV iron. We will follow up serum protein electrophoresis. 6. Prostatitis. Continue Cipro. The patient cleared from the Renal standpoint for discharge planning to follow up in the office in 3-4 weeks. Time spent examining the patient, [id number] communicating with the patient and family, discussing the case with the nursing staff, reviewing the data including lab and radiology,discussing with other speciality placing order 35 minutes JEANINE/DESIREE Voice ID: [id number] Report ID: [id number] MELONIE
[2021-10-30 16:16] VITALS: O2SAT 98
[2021-10-31] MEDS ORDERED: lisinopriL 20 MG TAB PO SCH (09:00)
[2021-11-05 11:20] LABS: Albumin, (SPE) 3.1 g/dL (3.8-4.8); Alpha-1-Globulins 0.3 g/dL (0.2-0.3); Alpha-2-Globulins 0.7 g/dL (0.5-0.9); Gamma Globulins 0.8 g/dL (0.8-1.7); INTERPRETATION REPORT
== END 2021-10-30 15:14 | disposition home or self-care (01) | DRG 871 ==
LOC: ER 19:04 → ERHOLD 23:42 → 2ND 10-28 00:20
PROVIDERS: ADMIT Hospitalist; ATTEND Internal Medicine
DX: A41.51 Sepsis due to Escherichia coli [E. coli] (principal); N17.0 Acute kidney failure with tubular necrosis; N30.01 Acute cystitis with hematuria; E87.1 Hypo-osmolality and hyponatremia; N41.0 Acute prostatitis; R65.20 Severe sepsis without septic shock; B96.20 Unspecified Escherichia coli [E. coli] as the cause of diseases classified elsewhere; D50.9 Iron deficiency anemia, unspecified; E83.42 Hypomagnesemia; E11.9 Type 2 diabetes mellitus without complications; E78.2 Mixed hyperlipidemia; I10 Essential (primary) hypertension; Z80.42 Family history of malignant neoplasm of prostate; Z20.822 Contact with and (suspected) exposure to COVID-19
CPT/HCPCS: 0240U; 36415; 71045; 74176; 76377; 80048; 80076; 81003; 81015; 82570; 82728; 82947; 83540; 83605; 83735; 83880; 84100; 84145; 84156; 84165; 84466; 84484; 85025; 85610; 87040; 87077; 87086; 87088; 87186; 87205; 93005; 99285; G0103; J0744; J1650; J1815; J2916; J3475; J7030; J7050